=== PATIENT | female | born 1995 | race Hispanic/Latino ===

== ENCOUNTER 2017-01-17 12:34 | Emergency (ER) | payer BC ==
[2017-01-17 12:46] VITALS: BP 128/83; PULSE 72; RESP 18; TEMP 98.4; O2SAT 99
--- NOTE | 2017-01-17 13:02 | ED PDOC ---
HPI: Abdomen Time Seen by Provider: 01/17/17 12:52 Chief Complaint (Nursing): Abdominal Pain History Per: Patient Onset/Duration Of Symptoms: Days (1) Current Symptoms Are (Timing): Still Present Severity: Moderate Pain Scale Rating Of: 4 Location Of Pain/Discomfort: RLQ Quality Of Discomfort: Sharp Associated Symptoms: denies: Fever, Vomiting, Diarrhea, Urinary Symptoms Exacerbating Factors: None Alleviating Factors: None Additional Complaint(s): Sharp RLQ abd pain since this AM. No NVD. No urinary sxs. LMP 1 month ago Abnormal Vaginal Bleeding: No Past Medical History Vital Signs: Last Vital Signs Temp 98.4 F 01/17/17 12:42 Pulse 72 01/17/17 12:42 Resp 18 01/17/17 12:42 BP 128/83 01/17/17 12:42 Pulse Ox 99 01/17/17 13:44 - Medical History PMH: Asthma (w exercise) Other PMH: Ovarian cyst - Family History Family History: States: Unknown Family Hx - Home Medications Home Medications: Ambulatory Orders Medication Instructions Recorded Non-Formulary 1 ea .ROUTE Q6 #1 ea 01/17/17 - Allergies Allergies/Adverse Reactions: Allergies Allergy/AdvReac Type Severity Reaction Status Date / Time Penicillins Allergy RASH Verified 01/17/17 12:42 Review of Systems Constitutional: Negative for: Fever Gastrointestinal: Positive for: Abdominal Pain. Negative for: Nausea, Vomiting , Diarrhea Genitourinary Female: Negative for: Dysuria, Frequency Musculoskeletal: Negative for: Back Pain Physical Exam - Physical Exam Appears: Positive for: Non-toxic, No Acute Distress Gastrointestinal/Abdominal: Positive for: Bowel Sounds, Soft, Tenderness (RLQ) Back: Negative for: L CVA Tenderness, R CVA Tenderness Extremity: Positive for: Normal ROM Neurologic/Psych: Positive for: Alert, Oriented - Laboratory Results Result Diagrams: 01/17/17 13:20 01/17/17 13:20 - ECG O2 Sat by Pulse Oximetry: 99 Disposition - Clinical Impression Clinical Impression: Ovarian cyst - Patient ED Disposition Is Patient to be Admitted: No Counseled Patient/Family Regarding: Studies Performed, Diagnosis, Need For Followup, Rx Given - Disposition [facility] Disposition: Routine/Home Disposition Time: 16:20 Condition: FAIR Prescriptions: Non-Formulary 1 ea .ROUTE Q6 #1 ea Instructions: Ovarian Cyst (ED) Forms: [employer] [facility] (Pashto)
[2017-01-17 13:27] LABS: BASO # 0.1 K/uL (0.0-0.2); BASO % 0.6 % (0.0-2.0); EOS % 0.5 % (0.0-4.0); HEMATOCRIT 40.3 % (34.0-47.0); LYMPH # 1.6 K/uL (1.0-4.3); LYMPH % 19.1 % (20.0-40.0); MEAN CELL VOLUME 93.6 fl (81.0-99.0); MEAN CORPUSCULAR HEMOGLOBIN 31.3 pg (27.0-31.0); MEAN CORPUSCULAR HGB CONC 33.5 g/dL (33.0-37.0); MEAN PLATELET VOLUME 11.5 fl (7.2-11.7); MONO # 0.3 K/uL (0.0-0.8); MONO % 4.1 % (0.0-10.0); NEUT # 6.2 K/uL (1.8-7.0); NEUT % 75.7 % (50.0-75.0); RED CELL DISTRIBUTION WIDTH 13.1 % (11.5-14.5); WHITE BLOOD COUNT 8.2 K/uL (4.8-10.8)
[2017-01-17 13:44] LABS: ALB/GLOB RATIO 1.5 (1.0-2.1); ALKALINE PHOSPHATASE 66 U/L (38-126); ALT/SGPT 20 U/L (9-52); BILIRUBIN,TOTAL 0.9 mg/dl (0.2-1.3); BLOOD UREA NITROGEN 8 mg/dl (7-17); CALCIUM 9.5 mg/dL (8.4-10.2); CARBON DIOXIDE 25 mmol/L (22-30); CHLORIDE 104 mmol/L (98-107); GFR AFRICAN-AMERICAN > 60; GLUCOSE,RANDOM 95 mg/dL (65-105); SODIUM 140 mmol/l (132-148); TOTAL PROTEIN 8.2 G/DL (6.3-8.2)
[2017-01-17 13:45] LABS: AST/SGOT 42 U/L (14-36); POTASSIUM 4.6 MMOL/L (3.6-5.0)
--- NOTE | 2017-01-17 14:20 | US ---
HISTORY: RLQ pain COMPARISON: None available. TECHNIQUE: Transvaginal pelvic ultrasound was performed. FINDINGS: UTERUS: Measures 7.5 x 5.0 x 4.1 cm. Normal in size and appearance. No fibroid or other mass lesion seen. ENDOMETRIUM: Measures 11 mm in diameter. Unremarkable. CERVIX: No cervical abnormality identified. RIGHT OVARY: Measures 3.0 x 3.0 x 2.3 cm. No solid mass. Normal flow. There is a 1.8 x 1.9 x 1.1 cm cyst in the right ovary. LEFT OVARY: Measures 3.1 x 2.8 x 1.3 cm. No solid mass. Normal flow. FREE FLUID: There is a small amount of free fluid in the cul de sac and right adnexa. OTHER FINDINGS: None. IMPRESSION: Small amount of free fluid in the right correlated air adnexa and 1.9 cm cyst in the right ovary. Leaking cyst is a differential consideration.
[2017-01-17] MEDS ORDERED: Sodium Chloride 0.9% 50 ML IV ONE (15:23)
[2017-01-17] MEDS ORDERED: Iohexol 300 100 ML IJ ONE (15:23)
--- NOTE | 2017-01-17 16:16 | CT ---
PROCEDURE: CT Abdomen and Pelvis with contrast HISTORY: RLQ pain COMPARISON: None. TECHNIQUE: Contrast dose: 90 cc Omnipaque Radiation dose: Total exam DLP = 466.65 mGy-cm. This CT exam was performed using one or more of the following dose reduction techniques: Automated exposure control, adjustment of the mA and/or kV according to patient size, and/or use of iterative reconstruction technique. FINDINGS: LOWER THORAX: Hepatic steatosis. No focal masses. No intrahepatic bile duct dilatation or perihepatic ascites. Cyst in the right hepatic lobe 16 mm. LIVER: Unremarkable. No gross lesion or ductal dilatation. GALLBLADDER AND BILE DUCTS: Unremarkable. PANCREAS: Unremarkable. No gross lesion or ductal dilatation. SPLEEN: Unremarkable. ADRENALS: Unremarkable. No mass. KIDNEYS AND URETERS: Unremarkable. No hydronephrosis. No solid mass. VASCULATURE: Unremarkable. No aortic aneurysm. BOWEL: Constipation without fecal impaction or obstruction. APPENDIX: No abnormalities to suggest acute appendicitis. No right lower quadrant inflammatory processes identified. PERITONEUM: Trace free fluid identified in the pelvis/cul de sac. No free air. LYMPH NODES: Unremarkable. No enlarged lymph nodes. BLADDER: Unremarkable. REPRODUCTIVE: Irregular irregular cyst right adnexa, it deformed wall with contrast-enhancing characteristics suggestive of ruptured right ovarian cyst. This measures 1.7 x 2.4 cm. Unremarkable uterus and left adnexa as visualize with exception of what may be small follicular cysts. BONES: No acute fracture. OTHER FINDINGS: None. IMPRESSION: No abnormalities to suggest acute appendicitis. No right lower quadrant inflammatory processes identified. Findings suggestive of recently ruptured right ovarian cyst. Trace free fluid identified in the pelvis/cul de sac. Additional benign and/or incidental findings described above.
== END 2017-01-17 16:20 | disposition home or self-care (01) ==
LOC: H.ER 12:34
DX: N83.201 Unspecified ovarian cyst, right side (principal); Z88.0 Allergy status to penicillin
CPT/HCPCS: 74177; 76830; 80053; 81025; 85025; 99282; Q9967